=== PATIENT | female | born 1980 | race Caucasian/White ===

== ENCOUNTER 2019-05-28 18:12 | Emergency (ER) | payer MEDICAID ==
[~2019-05-28] VITALS: Ht 170.2 cm; Wt 66.7 kg
[~2019-05-28 18:12] MED LIST: HYDR-4011 PO; IBUP-1542 PO
[2019-05-28 18:18] VITALS: Ht 170.2 cm; Wt 66.7 kg
[2019-05-28] MEDS ORDERED: SOD CHLORIDE 0.9% 1,000 ML IV STA (18:55)
[2019-05-28] MEDS ORDERED: KETOROLAC 30 MG INJ IV STA (18:55)
[2019-05-28] MEDS ORDERED: IOHEXOL 300MG/ML 150 ML BTL ONE (20:56)
[2019-05-28] MEDS ORDERED: SOD CHLORIDE 0.9% 100 ML ONE (20:56)
--- NOTE | 2019-05-28 21:02 | ERD ---
ER Documentation Chief Complaint Chief Complaint Pt reports lower abd pain radiating to upper abd x 2 weeks HPI 38-year-old female presents with complaint of lower left abdominal pain which occurs during her menses over the past 4 years. Stated that the pain has gotten worse over the last 2 weeks, especially the last 3 days. Patient denies any dysuria, hematuria, nausea, vomiting, diarrhea, fevers, chills, back pain, flank pain. ROS All systems reviewed and are negative except as per history of present illness. Medications Home Meds Active Scripts Hydrocodone/Acetaminophen (Orofino 5-325 Tablet) 1 Each Tablet, 1-2 TAB PO Q6H PRN for PAIN, #10 TAB Prov:HUGO DODSON 05/28/19 Ibuprofen* (Motrin*) 600 Mg Tab, 600 MG PO Q6, #30 TAB Prov:HUGO DODSON 05/28/19 Allergies Allergies: Coded Allergies: No Known Allergy (Unverified , 05/28/19) PMhx/Soc Medical and Surgical Hx: pt denies Medical Hx, pt denies Surgical Hx Hx Alcohol Use: No Hx Substance Use: No Hx Tobacco Use: No Smoking Status: Never smoker FmHx Family History: No diabetes, No coronary disease, No other Physical Exam Vitals Vital Signs Date Temp Pulse Resp B/P (MAP) Pulse Ox O2 O2 Flow FiO2 Time Delivery Rate 05/28/19 98.5 72 20 108/64 100 Room Air 23:39 (79) 05/28/19 97.9 81 20 93/58 (70) 97 18:18 Physical Exam Const: No acute distress Head: Atraumatic Eyes: Normal Conjunctiva ENT: Normal External Ears, Nose and Mouth. Neck: Full range of motion. No meningismus. Resp: Clear to auscultation bilaterally Cardio: Regular rate and rhythm, no murmurs Abd: Tenderness palpation of the left lower quadrant. Otherwise nontender nondistended with no masses. Skin: No petechiae or rashes Back: No midline or flank tenderness Ext: No cyanosis, or edema Neur: Awake and alert Psych: Normal Mood and Affect Result Diagram: 05/28/19191105/28/191911 Results 24 hrs Laboratory Tests Test 05/28/19 18:53 05/28/19 19:12 POC Beta HCG, Qualitative NEGATIVE White Blood Count 7.7 10^3/ul Red Blood Count 4.62 10^6/ul Hemoglobin 14.0 g/dl Hematocrit 41.5 % Mean Corpuscular Volume 89.8 fl Mean Corpuscular Hemoglobin 30.3 pg Mean Corpuscular Hemoglobin Concent 33.7 g/dl Red Cell Distribution Width 12.9 % Platelet Count 191 10^3/UL Mean Platelet Volume 11.5 fl Immature Granulocytes % 0.100 % Neutrophils % 53.9 % Lymphocytes % 36.8 % Monocytes % 8.5 % Eosinophils % 0.0 % Basophils % 0.7 % Nucleated Red Blood Cells % 0.0 /100WBC Immature Granulocytes # 0.010 10^3/ul Neutrophils # 4.2 10^3/ul Lymphocytes # 2.8 10^3/ul Monocytes # 0.7 10^3/ul Eosinophils # 0.0 10^3/ul Basophils # 0.1 10^3/ul Nucleated Red Blood Cells # 0.0 10^3/ul Urine Color STRAW Urine Clarity CLEAR Urine pH 6.0 Urine Specific Dennard 1.004 Urine Ketones NEGATIVE mg/dL Urine Nitrite NEGATIVE mg/dL Urine Bilirubin NEGATIVE mg/dL Urine Urobilinogen NEGATIVE mg/dL Urine Leukocyte Esterase NEGATIVE Deanna/ul Urine Microscopic RBC 1 /HPF Urine Microscopic WBC 1 /HPF Urine Squamous Epithelial Cells FEW /HPF Urine Bacteria FEW /HPF Urine Hemoglobin 1+ mg/dL Urine Glucose NEGATIVE mg/dL Urine Total Protein NEGATIVE mg/dl Sodium Level 139 mmol/L Potassium Level 4.3 mmol/L Chloride Level 102 mmol/L Carbon Dioxide Level 30 mmol/L Anion Gap 7 Blood Urea Nitrogen 11 mg/dl Creatinine 0.69 mg/dl Est Glomerular Filtrat Rate mL/min > 60 mL/min Glucose Level 86 mg/dl Calcium Level 9.4 mg/dl Total Bilirubin 0.4 mg/dl Direct Bilirubin 0.00 mg/dl Indirect Bilirubin 0.4 mg/dl Aspartate Amino Transf (AST/SGOT) 22 IU/L Alanine Aminotransferase (ALT/SGPT) 18 IU/L Alkaline Phosphatase 50 IU/L Total Protein 7.6 g/dl Albumin 4.3 g/dl Globulin 3.30 g/dl Albumin/Globulin Ratio 1.30 Lipase 127 U/L Current Medications Medications Dose Sig/Wm Start Time Status Last (Trade) Ordered Route PRN Stop Time Admin Dose Reason Admin Sodium 1,000 ml @ Q1H STAT 05/28/19 DC 05/28/19 Chloride 1,000 mls/hr IV 18:55 05/28/19 19:13 19:54 Ketorolac 30 mg ONCE STAT 05/28/19 DC 05/28/19 Tromethamine IV 18:55 05/28/19 19:13 (Toradol) 19:00 IV Flush 10 ml STK-MED 05/28/19 DC (NS 10 ml) ONCE .ROUTE 20:56 05/28/19 20:57 Sodium 100 ml @ ud STK-MED 05/28/19 DC Chloride ONCE .ROUTE 20:56 05/28/19 20:57 Iohexol 150 ml STK-MED 05/28/19 DC (Omnipaque ONCE .ROUTE 20:56 05/28/19 300mg/ ml) 20:57 Ondansetron 4 mg ONCE STAT 05/28/19 DC 05/28/19 HCl (Zofran IV 21:53 05/28/19 22:04 Inj) 21:54 Procedures/MDM DIAGNOSTIC IMAGING REPORT Patient: MARTHA BEJARANO : 1980 Age: 38 Sex: F MR #: [id number] DOS: 05/28/19 0000 Ordering MD: NICO BARRETO MD Location: [facility] Room/Bed: PROCEDURE: US Pelvis. CLINICAL INDICATION: Pain TECHNIQUE: Multiple sonographic images of the pelvis were obtained utilizing a transabdominal and endovaginal technique. The images were reviewed on a PACS workstation. COMPARISON: None. FINDINGS: The uterus is retroverted and measures 8.1 x 4.8 x 7.1 cm. There is coarse heterogeneous echogenicity throughout the uterus compatible with myomatous involvement.. There is a thin well-demarcated endometrial stripe complex which measures 12 millimeters in transverse diameter. There is no fluid in the canal. There is an IUD within the endometrial canal. . The right ovary was not identified. The left ovary has a normal echotexture and measures 2.9 x 2.7 x 2.5 cm. No solid adnexal masses are noted. There is arterial flow to the left ovary on color-flow Doppler imaging. No solid pelvic masses seen. There is no free fluid in the pelvis. IMPRESSION: Fibroid uterus containing IUD within the endometrial canal. Nonvisualization right ovary. Normal left ovary. .Nic Maza MD, MD Date Time Electronically viewed and signed by .Nic Maza MD, MD on 05/28/2019 19:59 .A/ CC: NICO BARRETO MD [id number] DIAGNOSTIC IMAGING REPORT Patient: MARTHA BEJARANO : 1980 Age: 38 Sex: F MR #: [id number] DOS: 05/28/19 1855 Ordering MD: HUGO DODSON Location: [facility] Room/Bed: PROCEDURE: CT abdomen and pelvis with contrast. CLINICAL INDICATION: Left lower quadrant pain TECHNIQUE: CT scan of the abdomen and pelvis without oral contrast was performed and is reconstructed at 2.5 mm contiguous axial intervals from the dome of the diaphragm to the inferior pubic rami.. The patient was scanned with intravenous contrast. Sagittal and coronal reformatted images were obtained from the axial source images. The calculated radiation dose measures 513 mGy centimeters. The CTDI measures 9 mGy. Individualized dose optimization technique was used for the performance of this exam. This included 1. Automated exposure control. 2. Adjustment of the mA and / or kV according to the patient's size. 3. Use of iterative reconstructed technique. DICOM images are available. COMPARISON: None. FINDINGS: The lung bases are clear of any infiltrate or nodule. No effusion is seen. The liver is of normal size, contour and attenuation with no solid mass or ductal dilatation. There is a lobulated cyst on the diaphragmatic aspect of the right lobe of the liver measuring 3 cm in diameter. No other hepatic mass is visualized. No gallstones are visualized. No splenic, adrenal or pancreatic abnormalities present. Kidneys enhance symmetrically and are of normal size and contour. No hydronephrosis, calculus or mass Is seen. Ureters are of normal course and ca liber with no stone. No bladder mass or stone is present. Uterus and ovaries appear normal. There is an IUD within the endometrial canal. There is no aneurysm. No adenopathy is present. There is a visible but nonpathologically enlarged left external iliac chain node measuring 9 mm in AP diameter. No bowel mass or obstruction is present. The appendix is normal. No phlegmon, ascites or pneumoperitoneum is visualized. The osseous structures are intact. IMPRESSION: No evidence of urolithiasis, obstructive uropathy, diverticulitis or appendicitis. Hepatic cyst. .Nic Maza MD, MD Date Time Electronically viewed and signed by .Nic Maza MD, MD on 05/28/2019 21:26 .A/ DIAGNOSTIC IMAGING REPORT Patient: MARTHA BEJARANO : 1980 Age: 38 Sex: F MR #: [id number] DOS: 05/28/19 2220 Ordering MD: HUGO DODSON Location: [facility] Room/Bed: PROCEDURE: US Abdomen. CLINICAL INDICATION: Abdominal Pain TECHNIQUE: Multiple real-time images were acquired of the patient's abdomen and retroperitoneum utilizing a high resolution transducer. COMPARISON: CT abdomen pelvis same day FINDINGS: The liver is of normal size, contour and echogenicity with no mass or intrahe patic ductal dilatation. Portal and hepatic vein are patent on color flow Doppler imaging. The common bile duct measures 3.1 millimeter in transverse diameter.No gallstones are identified. Gallbladder wall is not thickened and no abnormal pericholecystic fluid collection is seen. No sonographic Herrera's sign was elicited during this exam. There is no ascites. The pancreas is normal with no mass or ductal dilatation. The right kidney measures 11 cm in length. No hydronephrosis, calculus or masses seen.. There is no evidence of abdominal aortic aneurysm or caval thrombosis. IMPRESSION: No evidence of cholelithiasis, cholecystitis or biliary obstruction. .Nic Maza MD, MD Date Time Electronically viewed and signed by .Nic Maza MD, MD on 05/28/2019 22:57 .A/ CC: HUGO DODSON [id number] MDM: Given patient's complaint of acute pain patient was given IV pain medication as well as pelvic ultrasound, CT abdomen pelvis with contrast, and gallbladder ultrasound. Pelvic ultrasound showed fibroids within the uterus and CT abdomen showed hepatic cyst. Otherwise results within normal limits. I explained to patient we cannot definitely say that these findings are causing her symptoms but she would need to follow-up with her primary care regarding these findings. Patient given a list of obgyns. Patient understood and agreed to do so. I have low suspicion for ectopic , ovarian torsion, PID, tubo-ovarian abscess, uterine prolapse, ovarian cancer, uterine cancer, nephrolithiasis, pyelonephritis, appendicitis, diverticulitis, bowel obstruction, perirectal abscess. At this time, patient is stable for discharge and outpatient management. I have instructed the patient to follow-up with his/her primary care physician in 1 day. I have discussed with the patient the possibility of needing to see a specialist for further workup and imaging studies if symptoms persist. I have instructed the patient to promptly return to the ER for any new or worsening symptoms including but not limited to increased pain, fever, nausea, vomiting, weakness or LOC. The patient and/or family expressed understanding of and agreement with this plan. All questions were answered. Home care instructions were provided. Communication with patient throughout the ER course was performed using a baseball inspector . Patient gave verbal confirmation to the practitioner, through the baseball inspector, that they understood everything that was being said to them. DISCLAIMER: Inadvertent spelling and grammatical errors are likely due to EHR/dictation software use and do not reflect on the overall quality of patient care. Also, please note that the electronic time recorded on this note does not necessarily reflect the actual time of the patient encounter. Departure Diagnosis: Primary Impression: Pelvic pain Additional Impressions: Fibroids Hepatic cyst Condition: Stable HUGO DODSON May 28, 2019 21:02
[2019-05-28] MEDS ORDERED: ONDANSETRON 4 MG INJ IV STA (21:53)
[2019-05-28 23:39] VITALS: BP 108/64; PULSE 72; RESP 20
== END 2019-05-28 23:47 | disposition home or self-care (01) ==
LOC: FTE 18:12
DX: R10.32 Left lower quadrant pain (principal); R10.2 Pelvic and perineal pain
CPT/HCPCS: 36415; 74177; 76705; 76830; 76856; 80053; 81001; 81025; 83690; 85025; 96374; 96375; J1885; J2405; J7030; Q9967; Z7502; Z7610